=== PATIENT | female | born 1945 | race Caucasian/White ===

== ENCOUNTER 2022-02-11 15:07 | Emergency (ER) | payer OTHER ==
[~2022-02-11] VITALS: Ht 167.6 cm; Wt 65.0 kg
[2022-02-11] MEDS ORDERED: AMLO5TAB88 MT (15:48)
[2022-02-11] MEDS ORDERED: AMLODIPINE 5MG TABLET PO ONE (16:00)
[2022-02-11 16:32] VITALS: BP 183/99
== END 2022-02-11 16:53 | disposition home or self-care (01) ==
LOC: ER 15:07
DX: I10 Essential (primary) hypertension (principal)
CPT/HCPCS: 99283